=== PATIENT | female | born 1950 | race Caucasian/White ===

== ENCOUNTER 2020-11-04 20:41 | Emergency (ER) | payer MEDICARE ==
[~2020-11-04] VITALS: Ht 157.5 cm; Wt 72.0 kg
--- NOTE | 2020-11-04 20:44 | NUR ---
INITIAL PT CONTACT. PT PRESENTS TO ED VIA EMS C/O ETOH INTOXICATION. PT REPORTS "HAVING A FEW VODKA SODAS WHEN COOKING." PT DENIES ETOH ABUSE ON A REGULAR BASIS. PIV STARTED HOT WORT SETTLER, 4MG ZOFRAN AND IVF ADMIN. PT IS INCONTINENT OF STOOL AND URINE AT THIS TIME. PT SITTING UPRIGHT ON GURNEY, PLACED ON CONTINUOUS MONITORING. CALL LIGHT AND BELONGINGS WITHIN REACH. AWAITING ERP.
[2020-11-04] MEDS ORDERED: ONDANSETRON 2MG/ML, 2ML IVPush ONE (21:30)
[2020-11-04] MEDS ORDERED: SODIUM CHLORIDE 0.9% 1,000ML IVBOLUS ONE (21:30)
[2020-11-04] MEDS ORDERED: PLEASE ENTER ALLERGIES MC SCH (21:30)
[2020-11-04 21:39] LABS: BASOPHILS % (AUTO) 1 % (0-1); EOSINOPHILS % (AUTO) 1 % (1-7); LYMPHOCYTES % (AUTO) 16 % (22-44); MEAN CORPUSCULAR HEMOGLOBIN 34.9 pg (27.0-34.8); MEAN CORPUSCULAR HGB CONC 34.1 g/dL (32.4-35.8); MEAN PLATELET VOLUME 7.6 fL (7.4-10.4); MONOCYTES % (AUTO) 7 % (2-9); NEUTROPHILS % (AUTO) 76 % (42-75); PLATELET COUNT 240 x10^3/uL (130-400); RED BLOOD COUNT 3.61 x10^6/uL (3.82-5.3); RED CELL DISTRIBUTION WIDTH 12.2 % (9.6-15.2)
[2020-11-04 21:48] LABS: ALANINE AMINOTRANSFERASE 32 U/L (12-78); ALBUMIN 2.8 g/dL (3.4-5.0); ANION GAP 7 mmol/L (5-15); CALCIUM 8.1 mg/dL (8.5-10.1); CHLORIDE 109 mmol/L (98-107); CREATININE 0.79 mg/dL (0.55-1.02)
[2020-11-04 21:50] LABS: ALKALINE PHOSPHATASE 85 U/L (45-117); BILIRUBIN,TOTAL 0.3 mg/dL (0.2-1.0); TOTAL PROTEIN 5.8 g/dL (6.4-8.2)
[2020-11-04] MEDS ORDERED: ONDANSETRON 2MG/ML, 2ML ONE (22:26)
--- NOTE | 2020-11-04 23:29 | NUR ---
PT AMBULATORY WITH STEADY GAIT WITH THIS RN AND SPOUSE TO BATHROOM. PT READY FOR D/C AT THIS TIME. AWAITING D/C PAPERWORK
[2020-11-04 23:43] VITALS: BP 126/72
--- NOTE | 2020-11-04 23:47 | NUR ---
Patient given discharge instructions and they have confirmed that they understand the instructions. Patient ambulatory with steady gait. NAD, all questions answered appropriately, denies additional needs at this time. No personal belongings left in room after discharge.
== END 2020-11-04 23:49 | disposition home or self-care (01) ==
LOC: ED 21:00
DX: F10.120 Alcohol abuse with intoxication, uncomplicated (principal); G31.2 Degeneration of nervous system due to alcohol; R11.10 Vomiting, unspecified; Z72.9 Problem related to lifestyle, unspecified; J44.9 Chronic obstructive pulmonary disease, unspecified; Y90.0 Blood alcohol level of less than 20 mg/100 ml
CPT/HCPCS: 36415; 80053; 80320; 85025; 96361; 96374; 99283; J2405; J7030; G0480